=== PATIENT | female | born 1990 | race Two or more races ===

== ENCOUNTER 2017-02-22 11:56 | Outpatient (CLI) | payer MEDICAID ==
[2017-02-22 12:42] LABS: ABSOLUTE EOSINOPHILS # (AUTO) 0.1 10^3/uL (0.0-0.6); ABSOLUTE LYMPHOCYTES (AUTO) 1.8 10^3/uL (0.5-4.7); ABSOLUTE MONOCYTES (AUTO) 0.8 10^3/uL (0.1-1.4); ABSOLUTE NEUT (AUTO) 4.6 10^3/uL (1.7-8.2); BASOPHILS % (AUTO) 0.4 % (0-2); EOSINOPHILS % (AUTO) 1.8 % (0-6); HEMATOCRIT 33.6 % (36.0-47.0); HEMOGLOBIN 11.5 g/dL (12.0-15.5); HGB HCT DIFFERENCE 0.9; LYMPHOCYTES % (AUTO) 24.5 % (13-45); MEAN CORPUSCULAR HEMOGLOBIN 27.1 pg (27.0-33.4); MEAN CORPUSCULAR HGB CONC 34.1 g/dL (32.0-36.0); MEAN CORPUSCULAR VOLUME 80 fl (80-97); MONOCYTES % (AUTO) 10.5 % (3-13); RED BLOOD COUNT 4.22 10^6/uL (3.72-5.28); SEGMENTED NEUTROPHILS % (AUTO) 62.8 % (42-78); WHITE BLOOD COUNT 7.4 10^3/uL (4.0-10.5)
[2017-02-22 12:58] LABS: ALANINE AMINOTRANSFERASE 24 U/L (9-52); ALBUMIN 3.3 g/dL (3.5-5.0); ALKALINE PHOSPHATASE 106 U/L (38-126); ANION GAP 11 (5-19); ASPARTATE AMINO TRANSFERASE 24 U/L (14-36); BILIRUBIN,DIRECT 0.2 mg/dL (0.0-0.4); BILIRUBIN,TOTAL 0.3 mg/dL (0.2-1.3); BLOOD UREA NITROGEN 5 mg/dL (7-20); CALCIUM 9.1 mg/dL (8.4-10.2); CARBON DIOXIDE 19 mmol/L (22-30); CHLORIDE 108 mmol/L (98-107); CREATININE RESULT 0.56 mg/dL (0.52-1.25); GLUCOSE 105 mg/dL (75-110); LDH 357 U/L (313-618); TOTAL PROTEIN 6.5 g/dL (6.3-8.2); URIC ACID 5.1 mg/dL (2.5-6.2)
[2017-02-22 13:36] LABS: APPEARANCE,URINE CLEAR; BILIRUBIN,URINE NEGATIVE (NEGATIVE); GLUCOSE, URINE 50 mg/dL (NEGATIVE); KETONES,URINE NEGATIVE (NEGATIVE); LEUKOCYTE ESTERASE,URINE NEGATIVE (NEGATIVE); NITRITE,URINE NEGATIVE (NEGATIVE); PROTEIN,URINE NEGATIVE (NEGATIVE); URINE SPECIFIC GRAVITY 1.005; UROBILINOGEN,URINE NEGATIVE mg/dL (<2.0)
[2017-02-22 13:40] LABS: BACTERIA,URINE TRACE /HPF
[2017-02-22 13:44] LABS: URINE CREATININE 69.1 mg/dL (16-327); URINE PROTEIN 14.8 mg/dL (<12)
[2017-02-22 13:54] LABS: URINE BARBITURATES SCREEN NEGATIVE; URINE METHADONE SCREEN NEGATIVE; URINE OPIATES LOW NEGATIVE; URINE PHENCYCLIDINE SCREEN NEGATIVE
== END 2017-02-22 14:51 | disposition home or self-care (01) ==
LOC: LC 11:56
PROVIDERS: ATTEND Obstetrics & Gynecology
PROC: 4A1HXCZ Monitoring of Products of Conception, Cardiac Rate, External Approach (ICD-10-PCS; principal; 2017-02-22)
DX: O10.913 Unspecified pre-existing hypertension complicating pregnancy, third trimester (principal); Z3A.34 34 weeks gestation of pregnancy
CPT/HCPCS: 36415; 59025; 80053; 80307; 81001; 82570; 83615; 84156; 84550; 85025

== ENCOUNTER 2017-03-23 18:25 | Emergency (ER) | payer MEDICAID ==
--- NOTE | 2017-03-23 18:43 | ER Document Report ---
HPI - HPI Onset: Yesterday Onset/Duration: Sudden Pain Level: 5 Context: 26-year-old 39 week female arrived via EMS started to stumble and fall yesterday after her SECURITIES UNDERWRITER appointment setting up a induction on Monday, she started to do the [place] splits and used her hands to push herself backwards so she fell on her buttocks. It is difficult to walk because she has anterior pubic, and left pelvis pain with left upper thigh and groin pain. She feels like she pulled a muscle. She states that her Brandyn Wisdom are not any worse than usual she is feeling the baby move. heart tones are 145 at this time. She is having no vaginal bleeding or leaking of fluid. A blood pressure and pivot was 150/98 I will be rechecking a manual blood pressure and consulting with Dr. Adkins SECURITIES UNDERWRITER skilled nursing facilities professional. I did speak with Dr. Morocho who said the AP pelvis x-ray would be fine to get at this time. Pt wants to make sure the pelvis/pubic bone is not broken, agrees to an xray. Associated Symptoms: None Exacerbated by: Walking Relieved by: Denies Similar symptoms previously: No Recently seen / treated by doctor: No - ROS ROS below otherwise negative: Yes Systems Reviewed and Negative: Yes All other systems reviewed and negative - REPRODUCTIVE LMP: 39 wks pg Past Medical History - General Information source: Patient - Social History Smoking Status: Never Smoker Frequency of alcohol use: None Drug Abuse: None Lives with: Spouse/Significant other Family History: Reviewed & Not Pertinent - Past Medical History Cardiac Medical History: Reports: Hx Hypertension Surgical Hx: Negative Vertical Provider Document - CONSTITUTIONAL Agree With Documented VS: Yes Exam Limitations: No Limitations - INFECTION CONTROL TRAVEL OUTSIDE OF THE [place] IN LAST 30 DAYS: No - HEENT HEENT: Normocephalic - NECK Neck: Supple - RESPIRATORY O2 Sat by Pulse Oximetry: 98 - GI/ABDOMEN Notes: gravid uterus, FHT 145. - REPRODUCTIVE Notes: tender left upper anterior thigh muscle into pelvis tendon. pt states her symphysis pubis hurts. - MUSCULOSKELETAL/EXTREMETIES Musculoskeletal/Extremeties: Tender - see above, also sacrum tender - NEURO Level of Consciousness: Awake, Alert, Appropriate - DERM Integumentary: Warm, Dry Course - Re-evaluation Re-evalutation: 03/23/17 19:33 pelvis xray is negative. consulting with dr. adkins, the obgyn skilled nursing facilities professional due to bp 160/80 03/23/17 19:[address] adkins, send pt to labor and delivery now. - Vital Signs Vital signs: Temp Pulse Resp BP Pulse Ox 98.5 F 92 14 150/98 H 98 03/23/17 18:30 03/23/17 18:30 03/23/17 18:30 03/23/17 18:30 03/23/17 18:30 Discharge - Discharge Clinical Impression: left upper thigh strain, groin strain, 39 weeks gestation of Hypertension Qualifiers: Hypertension type: unspecified Qualified Code(s): I10 - Essential (primary) hypertension Condition: Stable Disposition: LABOR CHECK Additional Instructions: reregistered as labor check, send pt to labor and delivery via stretcher. Referrals: DALLAS MCKINNON MD [Primary Care Provider] - Follow up as needed
[2017-03-23] MEDS ORDERED: ACETAMINOPHEN 325 MG TABLET PO ONE (18:49)
[2017-03-23 18:57] VITALS: BP 160/80
--- NOTE | 2017-03-23 19:27 | RADIOLOGY REPORT (SQ) ---
EXAM DESCRIPTION: PELVIS AP COMPLETED DATE/TIME: 03/23/2017 7:14 pm REASON FOR STUDY: fell, pain COMPARISON: None. NUMBER OF VIEWS: One view TECHNIQUE: AP Pelvis LIMITATIONS: None. FINDINGS: MINERALIZATION: Normal. HIPS: No acute fracture or dislocation. No worrisome bone lesions. PELVIS AND SACRUM: No acute fracture or dislocation. No worrisome bone lesions. PUBIS AND ISCHIUM: No acute fracture. LOWER LUMBAR SPINE: No significant findings as visualized. SOFT TISSUES: No findings. OTHER: No other significant finding. IMPRESSION: NEGATIVE STUDY OF THE PELVIS. TECHNICAL DOCUMENTATION: JOB ID: [id number] [employer]- All Rights Reserved
== END 2017-03-23 19:40 | disposition admitted as inpatient to this hospital (09) ==
LOC: ER 18:25
DX: O99.89 Other specified diseases and conditions complicating pregnancy, childbirth and the puerperium (principal); M79.652 Pain in left thigh; R10.2 Pelvic and perineal pain; W01.0XXA Fall on same level from slipping, tripping and stumbling without subsequent striking against object, initial encounter; Y92.009 Unspecified place in unspecified non-institutional (private) residence as the place of occurrence of the external cause; O10.013 Pre-existing essential hypertension complicating pregnancy, third trimester; Z3A.39 39 weeks gestation of pregnancy
CPT/HCPCS: 99284; 72170; J3490

== ENCOUNTER 2017-03-23 19:42 | Outpatient (CLI) | payer MEDICAID ==
[2017-03-23 20:28] LABS: APPEARANCE,URINE CLEAR; BILIRUBIN,URINE NEGATIVE (NEGATIVE); COLOR,URINE YELLOW; GLUCOSE, URINE NEGATIVE (NEGATIVE); KETONES,URINE NEGATIVE (NEGATIVE); LEUKOCYTE ESTERASE,URINE NEGATIVE (NEGATIVE); NITRITE,URINE NEGATIVE (NEGATIVE); PROTEIN,URINE NEGATIVE (NEGATIVE); URINE SPECIFIC GRAVITY 1.008; UROBILINOGEN,URINE NEGATIVE mg/dL (<2.0)
[2017-03-23 20:44] LABS: URINE AMPHETAMINES SCREEN NEGATIVE; URINE BARBITURATES SCREEN NEGATIVE; URINE BENZODIAZEPINES SCREEN NEGATIVE; URINE COCAINE SCREEN NEGATIVE; URINE MARIJUANA (THC) SCREEN NEGATIVE; URINE METHADONE SCREEN NEGATIVE; URINE PHENCYCLIDINE SCREEN NEGATIVE
[2017-03-23 20:59] LABS: ABSOLUTE BASOPHILS # (AUTO) 0.1 10^3/uL (0.0-0.2); ABSOLUTE EOSINOPHILS # (AUTO) 0.2 10^3/uL (0.0-0.6); ABSOLUTE MONOCYTES (AUTO) 0.7 10^3/uL (0.1-1.4); ABSOLUTE NEUT (AUTO) 3.4 10^3/uL (1.7-8.2); BASOPHILS % (AUTO) 1.7 % (0-2); EOSINOPHILS % (AUTO) 3.4 % (0-6); HEMATOCRIT 33.6 % (36.0-47.0); HEMOGLOBIN 11.3 g/dL (12.0-15.5); LYMPHOCYTES % (AUTO) 30.6 % (13-45); MEAN CORPUSCULAR HGB CONC 33.5 g/dL (32.0-36.0); MEAN CORPUSCULAR VOLUME 78 fl (80-97); MONOCYTES % (AUTO) 11.6 % (3-13); PLATELET COUNT 213 10^3/uL (150-450); RED BLOOD COUNT 4.33 10^6/uL (3.72-5.28); RED CELL DISTRIBUTION WIDTH 14.6 % (11.5-14.0); SEGMENTED NEUTROPHILS % (AUTO) 52.7 % (42-78); TOTAL CELLS COUNTED % (AUTO) 100 %; WHITE BLOOD COUNT 6.4 10^3/uL (4.0-10.5)
[2017-03-23 21:09] LABS: UR PRO/CREAT RATIO RESULT 0.1 mg/mg (0.0-0.2)
[2017-03-23 21:23] LABS: ALANINE AMINOTRANSFERASE 25 U/L (9-52); ALKALINE PHOSPHATASE 165 U/L (38-126); ANION GAP 8 (5-19); ASPARTATE AMINO TRANSFERASE 26 U/L (14-36); BILIRUBIN,DIRECT 0.2 mg/dL (0.0-0.4); BILIRUBIN,TOTAL 0.4 mg/dL (0.2-1.3); BLOOD UREA NITROGEN 4 mg/dL (7-20); CALCIUM 9.9 mg/dL (8.4-10.2); CARBON DIOXIDE 23 mmol/L (22-30); CHLORIDE 106 mmol/L (98-107); GLUCOSE 80 mg/dL (75-110); LDH 403 U/L (313-618); POTASSIUM 4.4 mmol/L (3.6-5.0); SODIUM 136.9 mmol/L (137-145); TOTAL PROTEIN 6.1 g/dL (6.3-8.2); URIC ACID 4.5 mg/dL (2.5-6.2)
--- NOTE | 2017-03-27 05:20 | Non Stress Test Report ---
Non Stress Test Datetime Report Generated by CPN: 03/27/2017 05:19 DEMOGRAPHIC EGA NST: 38.4 EGA NST: 34.3 INDICATION Indication for Study: Ordered by Provider Indication for Study: Chronic Hypertension MONITORING Monitor Explained: Monitor Explained; Test Explained; Patient Verbalized Understanding Monitor Explained: Monitor Explained; Test Explained; Patient Verbalized Understanding Time on Monitor: 03/23/2017 20:15 Time on Monitor: 02/22/2017 13:51 Time off Monitor: 03/23/2017 21:30 Time off Monitor: 02/22/2017 14:24 NST Duration: 75 NST Duration: 33 NST INTERVENTIONS NST Interventions: PO Hydration NST Interventions: PO Hydration Physician Notified NST: Dr. Tsang Physician Notified NST: K Evans CNUmu BABY A: [id number] BABY A Movement : Present Movement : Present Contraction Frequency : occasional Contraction Frequency : x0 FHR Baseline : 140 FHR Baseline : 140 Accelerations : 15X15 Accelerations : 15X15 Decelerations : None Decelerations : None Variability : Moderate 6-25bpm Variability : Moderate 6-25bpm NST Review: Meets Criteria for Reactive NST NST Review and Verified By : Dieudonne Lobo RN NST Results: Reactive NST Results: Reactive NST REPORT Report Trigger: Send Report
== END 2017-03-23 22:04 | disposition home or self-care (01) ==
LOC: LC 19:42
PROVIDERS: ATTEND Obstetrics & Gynecology
PROC: 4A1HXCZ Monitoring of Products of Conception, Cardiac Rate, External Approach (ICD-10-PCS; principal; 2017-03-23)
DX: O47.1 False labor at or after 37 completed weeks of gestation (principal); Z3A.39 39 weeks gestation of pregnancy
CPT/HCPCS: 36415; 59025; 80053; 80307; 81005; 82570; 83615; 84156; 84550; 85025

== ENCOUNTER 2017-03-27 07:04 | Inpatient (IN) | payer MEDICAID ==
[2017-03-27] MEDS ORDERED: RINGERS SOLUTION,LACTATED 1,000 ML IV PRN (07:45)
[2017-03-27] MEDS ORDERED: OXYTOCIN/NORMAL SALINE 20 UNIT/1,000 ML RTUINJ IV PRN ×2 (07:45→20:15)
[2017-03-27] MEDS ORDERED: RINGERS SOLUTION,LACTATED 300 ML IV ONE (07:45)
[2017-03-27] MEDS ORDERED: PENICILLIN G POTASSIUM 5,000,000 UNIT in DEXTROSE 5%-WATER 100 ML IV ONE (07:50)
[2017-03-27] MEDS ORDERED: PENICILLIN G-K 5 MILLION UNIT VIAL ONE ×3 (08:06→18:19)
[2017-03-27 08:10] LABS: APPEARANCE,URINE SLIGHTLY-CLOUDY; BILIRUBIN,URINE NEGATIVE (NEGATIVE); COLOR,URINE YELLOW; GLUCOSE, URINE NEGATIVE (NEGATIVE); KETONES,URINE 20 mg/dL (NEGATIVE); LEUKOCYTE ESTERASE,URINE NEGATIVE (NEGATIVE); NITRITE,URINE NEGATIVE (NEGATIVE); PROTEIN,URINE NEGATIVE (NEGATIVE); UROBILINOGEN,URINE NEGATIVE mg/dL (<2.0)
[2017-03-27] MEDS ORDERED: LIDOCAINE 1% INJ-PF (10 MG/ML) 30 ML SDV ONE (08:23)
[2017-03-27] MEDS ORDERED: MISOPROSTOL 0.2 MG TABLET ONE (08:23)
[2017-03-27] MEDS ORDERED: OXYTOCIN/NORMAL SALINE 20 UNIT/1,000 ML RTUINJ ONE ×2 (08:23→20:16)
[2017-03-27 08:25] LABS: URINE AMPHETAMINES SCREEN NEGATIVE; URINE BARBITURATES SCREEN NEGATIVE; URINE BENZODIAZEPINES SCREEN NEGATIVE; URINE COCAINE SCREEN NEGATIVE; URINE MARIJUANA (THC) SCREEN NEGATIVE; URINE METHADONE SCREEN NEGATIVE; URINE PHENCYCLIDINE SCREEN NEGATIVE
[2017-03-27 09:07] LABS: ABSOLUTE EOSINOPHILS # (AUTO) 0.2 10^3/uL (0.0-0.6); ABSOLUTE MONOCYTES (AUTO) 0.6 10^3/uL (0.1-1.4); ABSOLUTE NEUT (AUTO) 3.6 10^3/uL (1.7-8.2); BASOPHILS % (AUTO) 0.4 % (0-2); EOSINOPHILS % (AUTO) 2.8 % (0-6); HEMATOCRIT 34.5 % (36.0-47.0); HEMOGLOBIN 11.2 g/dL (12.0-15.5); LYMPHOCYTES % (AUTO) 30.6 % (13-45); MEAN CORPUSCULAR HEMOGLOBIN 25.6 pg (27.0-33.4); MEAN CORPUSCULAR HGB CONC 32.5 g/dL (32.0-36.0); MEAN CORPUSCULAR VOLUME 79 fl (80-97); MONOCYTES % (AUTO) 9.2 % (3-13); PLATELET COUNT 229 10^3/uL (150-450); RED BLOOD COUNT 4.39 10^6/uL (3.72-5.28); RED CELL DISTRIBUTION WIDTH 14.8 % (11.5-14.0); TOTAL CELLS COUNTED % (AUTO) 100 %; WHITE BLOOD COUNT 6.4 10^3/uL (4.0-10.5)
--- NOTE | 2017-03-27 10:05 | L&D Progress Notes ---
PROGRESS NOTES Datetime Report Generated by CPN: 03/27/2017 10:05 PROGRESS NOTE Procedures: Sterile Vag Exam Plan: Continue Present Management Informed Consent Obtained: Vaginal Delivery; Induction of Labor; Dilatation and Curretage; Risks, Benefits and Alternatives Discussed Comment: 26 yo history of CHTN- IOL LGSIL- colpo pp obesity chronic hypertension sickle cell trait carrier-fob unknown status cervical exam soft 350/-1 gbs prophylaxis FHTs 130s average variability plan to rupture at 12 noon poc reviewed with pt anticipate VAGINAL EXAM Dilatation: 3 Effacement: 50 Station: -1 FETUS A Monitoring: External US Variability: Moderate 6-25bpm Accelerations: 15X15 Decelerations: None FHR Category: Category I : 39.1 SIGNATURE SIGNATURE: [id number];[id number] SIGNATURE: [id number] Assignment: Sammy Quevedo MD Signature: with User ID: [email or web address] : with User ID: [email or web address]
[2017-03-27] MEDS: PENICILLIN G POTASSIUM 2,500,000 UNIT in DEXTROSE 5%-WATER 50 ML IV SCH ×2 (13:04→18:25)
[2017-03-27] MEDS ORDERED: BUPIVACAINE HCL 0.25 % INJ/PF (2.5 MG/1 ML) 30 ML VIAL ONE ×2 (14:13→16:49)
[2017-03-27] MEDS ORDERED: FENTANYL/BUPIVACAINE/NS/PF 200 MCG/100 ML RTUINJ EPI ONE (14:13)
[2017-03-27] MEDS ORDERED: EPHEDRINE SULFATE INJ 50 MG/1 ML AMPULE ONE (14:14)
[2017-03-27] MEDS ORDERED: LIDOCAINE 2% INJ-PF (20 MG/ML) 10 ML AMPUL ONE (16:17)
[2017-03-27] MEDS ORDERED: LOPERAMIDE HCL 2 MG CAPSULE ONE (19:55)
[2017-03-27] MEDS ORDERED: CARBOPROST TROMETHAMINE INJ 250 MCG/1 ML AMPULE ONE (19:55)
[2017-03-27] MEDS ORDERED: LOPERAMIDE HCL 2 MG CAPSULE PO ONE (19:59)
[2017-03-27] MEDS ORDERED: NA PHOS,M-B/NA PHOS,DI-BA (ADULT) 133 ML ENEMA PR PRN ×2 (20:15→22:18)
[2017-03-27] MEDS ORDERED: MAGNESIUM HYDROXIDE SUSP 30 ML UDCUP PO PRN ×2 (20:15→22:18)
[2017-03-27] MEDS ORDERED: MEASLES,MUMPS&RUBELLA VACC/PF 0.5 ML VIAL SUBCUT PRN ×2 (20:15→22:18)
[2017-03-27] MEDS ORDERED: PROMETHAZINE HCL INJ 25 MG/1 ML VIAL IV PRN ×2 (20:15→22:18)
[2017-03-27] MEDS ORDERED: DIPHENHYDRAMINE HCL 25 MG CAPSULE PO PRN ×2 (20:15→22:18)
[2017-03-27] MEDS ORDERED: ZOLPIDEM TARTRATE 5 MG TABLET PO PRN ×2 (20:15→22:18)
[2017-03-27] MEDS ORDERED: PROMETHAZINE HCL 25 MG TABLET PO PRN ×2 (20:15→22:18)
[2017-03-27] MEDS ORDERED: GLYCERIN/WITCH HAZEL LEAF 1 EACH MED..PAD TP PRN ×2 (20:15→22:18)
[2017-03-27] MEDS ORDERED: ACETAMINOPHEN 650 MG SUPP.RECT PR PRN ×2 (20:15→22:18)
[2017-03-27] MEDS ORDERED: BENZOCAINE/MENTHOL AEROSOL SPRAY 56 ML TOP PRN ×2 (20:15→22:18)
[2017-03-27] MEDS ORDERED: DIPH/PERTUSS(ACELL)/TETANUS VAC/PF 0.5 ML SYR (>=10YO) IM PRN ×2 (20:15→22:18)
[2017-03-27] MEDS ORDERED: DIBUCAINE 1% OINTMENT 28 GM TP PRN ×2 (20:15→22:18)
[2017-03-27] MEDS ORDERED: PSEUDOEPHEDRINE HCL 30 MG TABLET PO PRN ×2 (20:15→22:18)
[2017-03-27] MEDS ORDERED: PROMETHAZINE HCL 25 MG SUPP.RECT PR PRN ×2 (20:15→22:18)
[2017-03-27] MEDS ORDERED: MISOPROSTOL 0.2 MG TABLET PR ONE (20:20)
--- NOTE | 2017-03-27 20:53 | Delivery Summary ---
Del Sum A-C Datetime Report Generated by CPN: 03/27/2017 20:53 DELIVERY PERSONNEL DELIVERY PERSONNEL: [id number] Delivery Doctor:: Rosa M Cisneros CNM Labor and Delivery Nurse:: Soni Houston RNbingo clerk Nurse:: Jaylin Yanez RN E Marketing Specialist:: Carrie Gramajo RN Certified Legal Investigator/SEDIMENT REMEDIATION CONSULTANT: Dyan Davis CNA Additional Personnel: : Lea Shea RN MATERNAL INFORMATION Delivery Anesthesia: Epidural Medications After Delivery: Pitocin Bolus-Please Comment; Pitocin Drip 20 Units/1000ml NSS; Other-Please Comment Meds After Delivery Comment: Cytotec 1000mcg SD, 125mcg Hemabate Estimated Blood Loss (ml): 500 Maternal Complications: Hemorrhage Provider Comments: pt with uncontrolled urge to push climbing bed listening to commands delivery of viable male with ritgens maneuver ROP bulb suctioned on perineum to abdomen tactile stimulation elicits spont cry cord clamped cut by mother of baby placenta intact 3VC cord blood obtained placenta intact copious blood uterus explored boggy uterus clots expelled fundal massage continue pitocin EBL 500 cc cytotec 1000 mg per rectum with continued boggy uterus hemabate 125 mcg IM x 1 hemostasis achieved superficial perineal tear not repaired LABOR SUMMARY EDC: 04/02/2017 00:00 No. Babies in Womb: 1 Attempted: No Labor Anesthesia: Epidural LABOR INFORMATION Reason for Induction: Chronic Hypertension Onset of Labor: 03/27/2017 16:57 Complete Dilatation: 03/27/2017 19:13 Oxytocin: Induction Group B Beta Strep: positive Antibiotics # of Doses: 3 Antibiotics Time of Last Dose: 1830 Name of Antibiotic Given: penicillin Steroids Given: None Reason Steroids Not Administered: Not Applicable MEMBRANES Membranes Rupture Method: Artificial Rupture of Membranes: 03/27/2017 13:00 Length of Rupture (hr): 6.72 Amniotic Fluid Color: Clear Amniotic Fluid Amount: Small Amniotic Fluid Odor: None STAGES OF LABOR Stage 1 hr: 2 Stage 1 min: 16 Stage 2 hr: 0 Stage 2 min: 30 Stage 3 hr: 0 Stage 3 min: 3 Total Time in Labor hr: 2 Total Time in Labor min: 49 VAGINAL DELIVERY Episiotomy: None Laceration Repair Note: superficial perineal tear not repaired CSECTION DELIVERY Primary Indication: N/A Secondary Indication: N/A CSection Incidence: N/A Labor: N/A Elective: N/A CSection Incision: N/A BABY A INFORMATION Delivery Date/Time: 03/27/2017 19:43 Method of Delivery: Vaginal Born in Route : No : N/A Forceps: N/A Vacuum Extraction: N/A Shoulder Dystocia : No PRESENTATION/POSITION BABY A Presentation: Cephalic Cephalic Presentation: Vertex Vertex Position: Left Occipital Anterior Breech Presentation: N/A PLACENTA INFORMATION BABY A Placenta Delivery Time : 03/27/2017 19:46 Placenta Method of Delivery: Spontaneous Placenta Status: Delivered SCORES BABY A Heart Rate 1 min: >100 bpm Resp Effort 1 min: Good Cry Reflex Irritability 1 min: Cough or Sneeze or Pulls Away Muscle Tone 1 min: Active Motion Color 1 min: Blue/Pale Resuscitation Effort 1 min: Tactile Stimulation SCORE 1 MIN: 8 Heart Rate 5 min: >100 bpm Resp Effort 5 min: Good Cry Reflex Irritability 5 min: Cough or Sneeze or Pulls Away Muscle Tone 5 min: Active Motion Color 5 min: Body [place], Extremities Blue Resuscitation Effort 5 min: Tactile Stimulation SCORE 5 MIN: 9 INFORMATION BABY A Gestational Age at Delivery: 39.1 Gestational Status: Full Term- 39- 40.6 Weeks Outcome : Liveborn Condition : Stable Sex: Male IDENTIFICATION BABY A Verification Date/Time: 03/27/2017 19:52 ID Band Number: [id number] Mother's Name Verified: Yes RN Verifying Infant: RSkye George RN Additional Verifying Personnel: D. Anali WEIGHT/LENGTH BABY A Birthweight (gm): 4460 Weight (lb): 9 Weight (oz): 13 Length (in): 20.00 Length (cm): 50.80 CORD INFORMATION BABY A No. Cord Vessels: 3 Nuchal Cord : N/A Cord Blood Taken: Yes-For Storage ([facility] [place]) Infant Suction: Mouth; Nose BABY B INFORMATION : N/A SIGNATURES Assignment: Sammy Quevedo MD Signature: with User ID: Aditi : with User ID: [email or web address]
[2017-03-27] MEDS ORDERED: CARBOPROST TROMETHAMINE INJ 250 MCG/1 ML AMPULE IM SCH (21:00)
[2017-03-27] MEDS ORDERED: HYDROMORPHONE HCL INJ/PF 2 MG/ML AMPULE IV ONE (21:01)
[2017-03-27] MEDS ORDERED: HYDROMORPHONE HCL INJ/PF 2 MG/ML AMPULE ONE (21:03)
[2017-03-27] MEDS ORDERED: FAMOTIDINE 20 MG TABLET PO SCH (22:00)
[2017-03-27] MEDS ORDERED: IBUPROFEN 800 MG TABLET PO SCH (22:00)
--- NOTE | 2017-03-27 22:08 | Admission Physical ---
Datetime Report Generated by CPN: 03/27/2017 22:08 CURRENT ADMISSION Chief Complaint: Scheduled Induction of Labor Indication for Induction: Chronic Hypertension Indication for Induction: Term, Intrauterine Admit Plan: Admit to Unit; Initiate Labor Induction Protocol ALLERGIES Medication Allergies: iodine Medication Allergies: iodine (03/27/2017) Medication Allergies: iodine (03/23/2017) Medication Allergies: iodine (02/22/2017) Medication Allergies: iodine (01/20/2017) Latex: No Latex Allergies Food Allergies: none Environmental Allergies: none OBSTETRICAL HISTORY EDC: 04/02/2017 00:00 : 2 Para: 1 Term: 1 : 0 SAB: 0 IAB: 0 Ectopic: 0 Livin Cesareans: 0 VBACs: 0 Multiple Births: 0 Gestational Diabetes: No Rh Sensitization: No Incompetent Cervix: No SKYLAR: No Infertility: No ART Treatment: No Uterine Anomaly: No IUGR: No Hx Previous C/S: No Macrosomia: No Hx Loss/Stillborn: No PIH: Yes Hx : No Placenta Previa/Abruption: No Depression/PP Depression: No PTL/PROM: No Post Hemorrhage: No Current Procedures: Ultrasound; NST Obstetrical History Comments: g1- full term NVD chronic hypertsion-asthma no other problems g2-chronic hypertension SEE RECORDS Alcohol: No Marijuana : No Cocaine: No Other Illicit Drugs: No Cigarettes: Never Smoker. [id number] MEDICAL HISTORY Diabetes: No Blood Transfusion: No Pulmonary Disease (Asthma, TB): Yes Breast Disease: No Hypertension: Yes Certified Flex Endoscope Reprocessor Surgery: No Heart Disease: No Hosp/Surgery: Yes Autoimmune Disorder: No Anesthetic Complications: No Kidney Disease: No Abnormal Pap Smear: Yes Neuro/Epilepsy: No Psychiatric Disorders: No Other Medical Diseases: No Hepatitis/Liver Disease: No Significant Family History: No Varicosities/Phlebitis: No Trauma/Violence : No Thyroid Dysfunction: No Medical History Comments: abnormal pap smears, will have test after baby born, developed hypertension at 16. self d/c'd Lisinopril INFECTIOUS HISTORY Gonorrhea: No Genital Herpes: No Chlamydia: No Tuberculosis: No Syphilis: No Hepatitis: No HIV/AIDS Exposure: No Rash or Viral Illness: No HPV: No PHYSICAL EXAM General: Normal HEENT: Normal Neurologic: Normal Thyroid: Normal Heart: Normal Lungs: Normal Breast: Normal Back: Normal Abdomen: Normal Genitourinary Exam: Normal Extremities: Normal DTRs: Normal Pelvic Type: Adequate VAGINAL EXAM Dilatation: 3 Effacement: 50 Station: -1 FETUS A EGA: 39.1 Monitoring: External US FHR- Baseline: 145 Variability: Moderate 6-25bpm Accelerations: 15X15 FHR Category: Category I Presentation: Vertex Admit Comment: see progress note written as admission note 26 yo admitted for iol secondary to chronic hypertension EDC 04/02/17 EDC 39.1 Morbid obesity Sickle cell trait carrier- FOB unknown status GBS positive Asthma Chronic Hypertension history of LGSIL- colpo pp plan on rupturing after 2nd dose of penicillin anticipate PLANS FOR LABOR AND DELIVERY Labor and Delivery: None Pain Management: Epidural Feeding Preference: Breast Benefit of Breast Feed Discussed: Yes Circumcision: No INFORMED CONSENT Informed Consent Obtained: Vaginal Delivery; Induction of Labor; Dilatation and Curretage; Risks, Benefits and Alternatives Discussed Assignment: Sammy Quevedo MD Signature: with User ID: [email or web address] : with User ID: [email or web address]
[2017-03-27] MEDS ORDERED: ACETAMINOPHEN WITH CODEINE #3 TABLET PO PRN ×2 (22:18)
[2017-03-27] MEDS ORDERED: INFLUENZA ADLT QUAD (36MOS+) 2017-18 VAC 0.5 ML SYR IM PRN (22:57)
[2017-03-27] MEDS ORDERED: LISINOPRIL 10 MG TABLET PO ONE (23:15)
[2017-03-28] MEDS ORDERED: CEFTRIAXONE INJ 1000 MG VIAL IV SCH (04:15)
[2017-03-28] MEDS ORDERED: CLINDAMYCIN 900 MG/D5W RTU 50 ML IV ONE (04:15)
[2017-03-28] MEDS ORDERED: CEFTRIAXONE 1 GM/D5W RTU 1 GM/50 ML RTUPB IV ONE ×2 (05:00→05:03)
[2017-03-28] MEDS: IBUPROFEN 800 MG TABLET PO SCH ×3 (05:14→22:30)
[2017-03-28 07:26] LABS: HEMATOCRIT 31.8 % (36.0-47.0); HEMOGLOBIN 10.3 g/dL (12.0-15.5); MEAN CORPUSCULAR HEMOGLOBIN 25.3 pg (27.0-33.4); MEAN CORPUSCULAR HGB CONC 32.5 g/dL (32.0-36.0); MEAN CORPUSCULAR VOLUME 78 fl (80-97); PLATELET COUNT 205 10^3/uL (150-450); RED BLOOD COUNT 4.09 10^6/uL (3.72-5.28); RED CELL DISTRIBUTION WIDTH 14.7 % (11.5-14.0)
[2017-03-28 07:31] LABS: WHITE BLOOD COUNT 12.9 10^3/uL (4.0-10.5)
[2017-03-28] MEDS: LISINOPRIL 10 MG TABLET PO SCH (09:06)
[2017-03-28] MEDS: CLINDAMYCIN 900 MG/D5W RTU 50 ML IV SCH ×2 (09:06→14:54)
[2017-03-28] MEDS: SENNOSIDES/DOCUSATE 8.6-50 MG 1 EACH TABLET PO SCH (09:07)
[2017-03-28] MEDS: DOCUSATE SODIUM 100 MG CAPSULE PO SCH ×2 (09:08→18:14)
[2017-03-28] MEDS: FAMOTIDINE 20 MG TABLET PO SCH ×2 (09:08→22:30)
[2017-03-28] MEDS: FERROUS SULFATE 325 MG TABLET PO SCH ×2 (09:08→20:33)
[2017-03-28] MEDS: PRENATAL VITAMIN W DHA CAPSULE PO SCH (09:08)
--- NOTE | 2017-03-28 09:08 | PDOC PROGRESS REPORT ---
Subjective-OB Subjective: Post Delivery Day: 26 year old. Denies any needs at this time OOB in room, had fever last night, feeling ok now,breast feeding, eating well, voiding, mod bleeding Physical Exam (OB) Vital Signs: Temp Pulse Resp BP Pulse Ox 98.3 F 83 17 114/59 L 100 03/28/17 07:53 03/28/17 07:53 03/28/17 07:53 03/28/17 07:53 03/28/17 07:53 Intake & Output 03/27/17 03/28/17 03/29/17 06:59 06:59 06:59 Weight 120.3 kg - PIH/Pre-Eclampsia DTR's: 1 + Clonus: Negative Headache: Present Epigastric Pain: No Visual Changes: No - Lochia Lochia Amount: Moderate 25-50 ml Lochia Color: Rubra/Red - Abdomen Description: Tender, Soft Hernia Present: No Fundal Description: Firm, Midline Fundal Height: u/u - u/2 Objective-Diagnostic Laboratory: 03/28/17 06:55 03/27/17 03/27/17 03/28/17 08:48 08:48 06:55 WBC 6.4 12.9 H D RBC 4.39 4.09 Hgb 11.2 L 10.3 L Hct 34.5 L 31.8 L MCV 79 L 78 L MCH 25.6 L 25.3 L MCHC 32.5 32.5 RDW 14.8 H 14.7 H Plt Count 229 205 Seg Neutrophils % 57.0 Lymphocytes % 30.6 Monocytes % 9.2 Eosinophils % 2.8 Basophils % 0.4 Absolute Neutrophils 3.6 Absolute Lymphocytes 2.0 Absolute Monocytes 0.6 Absolute Eosinophils 0.2 Absolute Basophils 0.0 Blood Type A POSITIVE Antibody Screen NEGATIVE Assessment and Plan(PN) - Assessment and Plan (1) Normal vaginal delivery Is this a current diagnosis for this admission?: Yes (2) hemorrhage of vagina Is this a current diagnosis for this admission?: Yes (3) GBS (group B Streptococcus carrier), +RV culture, currently Is this a current diagnosis for this admission?: Yes (4) Hypertension Qualifiers: Hypertension type: unspecified Qualified Code(s): I10 - Essential (primary ) hypertension Is this a current diagnosis for this admission?: Yes (5) 39 weeks gestation of Is this a current diagnosis for this admission?: Yes - Time Spent with Patient Time with patient: Less than 15 minutes Medications reviewed and adjusted accordingly: Yes - Disposition Anticipated Discharge: Home Within: within 48 hours
[2017-03-28] MEDS ORDERED: SENNOSIDES/DOCUSATE 8.6-50 MG 1 EACH TABLET PO SCH (10:00)
[2017-03-28] MEDS ORDERED: PRENATAL VITAMIN W DHA CAPSULE PO SCH (10:00)
[2017-03-28] MEDS ORDERED: DOCUSATE SODIUM 100 MG CAPSULE PO SCH (10:00)
[2017-03-28] MEDS ORDERED: FERROUS SULFATE 325 MG TABLET PO SCH (10:00)
[2017-03-28] MEDS ORDERED: CEFTRIAXONE 1 GM/D5W RTU 1 GM/50 ML RTUPB IV SCH (18:00)
[2017-03-28] MEDS ORDERED: CEFTRIAXONE SODIUM 1,000 MG in DEXTROSE 5%-WATER 100 ML IV SCH (18:00)
[2017-03-28] MEDS: CEPHALEXIN 250 MG CAPSULE PO SCH ×2 (18:14→23:29)
[2017-03-29] MEDS: IBUPROFEN 800 MG TABLET PO SCH ×3 (05:47→21:11)
[2017-03-29] MEDS: CEPHALEXIN 250 MG CAPSULE PO SCH ×2 (05:48→15:36)
[2017-03-29] MEDS: LISINOPRIL 10 MG TABLET PO SCH (09:41)
[2017-03-29] MEDS: FAMOTIDINE 20 MG TABLET PO SCH ×2 (09:42→21:11)
[2017-03-29] MEDS: DOCUSATE SODIUM 100 MG CAPSULE PO SCH ×2 (09:42→18:05)
[2017-03-29] MEDS: PRENATAL VITAMIN W DHA CAPSULE PO SCH (09:42)
[2017-03-29] MEDS: SENNOSIDES/DOCUSATE 8.6-50 MG 1 EACH TABLET PO SCH (09:42)
[2017-03-29] MEDS: FERROUS SULFATE 325 MG TABLET PO SCH ×2 (09:42→18:05)
--- NOTE | 2017-03-29 13:40 | PDOC PROGRESS REPORT ---
Subjective-OB Subjective: Post Delivery Day:2 26 year old G2 now P2 s/p ppd2. Reports to have been on lisinopril 10yrs ago with the same problems as this and even after trying different doses her blood pressure has never been controlled. Denies JONES/RUQ/visual disturbances or other concerns today. Attempting . Physical Exam (OB) Vital Signs: Temp Pulse Resp BP Pulse Ox 98.1 F 84 14 133/74 H 100 03/29/17 11:41 03/29/17 11:41 03/29/17 11:41 03/29/17 11:41 03/29/17 11:41 Intake & Output 03/28/17 03/29/17 03/30/17 06:59 06:59 06:59 Weight 120.3 kg - General General Appearance: Appears well In distress: None - PIH/Pre-Eclampsia DTR's: 1 + Clonus: Negative Headache: Absent Epigastric Pain: No Visual Changes: No - Episiotomy/Laceration Site Condition: N/A - Lochia Lochia Amount: Small 10-25 ml Lochia Color: Rubra/Red, Serosa/Brown - Abdomen Description: Tender, Soft, Round Hernia Present: No Fundal Description: Firm Fundal Height: u/u - u/2 - Respiratory Respiratory Status: No respiratory distress - Extremities Upper extremity: Normal inspection Lower extremities: Normal inspection - Neurological Cognition: Normal Orientation: AAOx4 - Psychological Associated symptoms: Normal affect, Normal mood Objective-Diagnostic Laboratory: 03/28/17 06:55 Assessment and Plan(PN) - Assessment and Plan (1) Chronic hypertension affecting Is this a current diagnosis for this admission?: Yes Plan: Discussed with Dr. Haider who recommends stopping lisinopril at this time and will start procardia now. Will obtain PIH labs. Continue monitoring for s/s of pre-e. (2) GBS (group B Streptococcus carrier), +RV culture, currently Is this a current diagnosis for this admission?: Yes Plan: delivered (3) Normal vaginal delivery Is this a current diagnosis for this admission?: Yes Plan: routine pp care (4) Acute blood loss anemia Is this a current diagnosis for this admission?: Yes Plan: inc dietary iron and feso4 bid - Time Spent with Patient Time with patient: 15-25 minutes Medications reviewed and adjusted accordingly: Yes - Disposition Anticipated Discharge: Home Within: within 24 hours
[2017-03-29 14:56] LABS: ABSOLUTE EOSINOPHILS # (AUTO) 0.3 10^3/uL (0.0-0.6); ABSOLUTE LYMPHOCYTES (AUTO) 1.8 10^3/uL (0.5-4.7); ABSOLUTE MONOCYTES (AUTO) 0.7 10^3/uL (0.1-1.4); ABSOLUTE NEUT (AUTO) 5.1 10^3/uL (1.7-8.2); BASOPHILS % (AUTO) 0.4 % (0-2); EOSINOPHILS % (AUTO) 3.7 % (0-6); HEMATOCRIT 31.1 % (36.0-47.0); HEMOGLOBIN 10.4 g/dL (12.0-15.5); MEAN CORPUSCULAR HEMOGLOBIN 25.9 pg (27.0-33.4); MEAN CORPUSCULAR HGB CONC 33.4 g/dL (32.0-36.0); MEAN CORPUSCULAR VOLUME 78 fl (80-97); MONOCYTES % (AUTO) 8.9 % (3-13); PLATELET COUNT 236 10^3/uL (150-450); RED BLOOD COUNT 4.02 10^6/uL (3.72-5.28); RED CELL DISTRIBUTION WIDTH 14.7 % (11.5-14.0); TOTAL CELLS COUNTED % (AUTO) 100 %; WHITE BLOOD COUNT 7.9 10^3/uL (4.0-10.5)
[2017-03-29 15:12] LABS: ALANINE AMINOTRANSFERASE 30 U/L (9-52); ALBUMIN 2.7 g/dL (3.5-5.0); ALKALINE PHOSPHATASE 113 U/L (38-126); ANION GAP 7 (5-19); ASPARTATE AMINO TRANSFERASE 32 U/L (14-36); BLOOD UREA NITROGEN 7 mg/dL (7-20); CALCIUM 9.4 mg/dL (8.4-10.2); CARBON DIOXIDE 25 mmol/L (22-30); CHLORIDE 109 mmol/L (98-107); GLUCOSE 80 mg/dL (75-110); POTASSIUM 4.3 mmol/L (3.6-5.0); SODIUM 141.4 mmol/L (137-145); TOTAL PROTEIN 5.6 g/dL (6.3-8.2); URIC ACID 4.5 mg/dL (2.5-6.2)
[2017-03-29 15:44] LABS: BILIRUBIN,TOTAL < 0.1 mg/dL (0.2-1.3)
[2017-03-29] MEDS ORDERED: NIFEDIPINE 30 MG TAB.ER.24 PO SCH (18:00)
[2017-03-30] MEDS: IBUPROFEN 800 MG TABLET PO SCH ×2 (06:11→13:34)
[2017-03-30] MEDS: SENNOSIDES/DOCUSATE 8.6-50 MG 1 EACH TABLET PO SCH (09:42)
[2017-03-30] MEDS: FERROUS SULFATE 325 MG TABLET PO SCH (09:42)
[2017-03-30] MEDS: PRENATAL VITAMIN W DHA CAPSULE PO SCH (09:42)
[2017-03-30] MEDS: DOCUSATE SODIUM 100 MG CAPSULE PO SCH (09:42)
[2017-03-30] MEDS: FAMOTIDINE 20 MG TABLET PO SCH (09:42)
--- NOTE | 2017-03-30 10:05 | PDOC PROGRESS REPORT ---
Subjective-OB Subjective: Post Delivery Day: 26 year old. Denies any needs at this time. Ready for discharge. Physical Exam (OB) Vital Signs: Temp Pulse Resp BP Pulse Ox 98.5 F 86 16 138/84 H 95 03/30/17 08:00 03/30/17 08:00 03/30/17 08:00 03/30/17 08:00 03/30/17 08:00 - PIH/Pre-Eclampsia DTR's: 1 + Clonus: Negative Headache: Absent Epigastric Pain: No Visual Changes: No - Lochia Lochia Amount: Scant < 10 ml Lochia Color: Rubra/Red - Abdomen Description: Soft, Round Hernia Present: No Bowel Sounds: Normoactive Flatus Presence: Present Stool: Yes Fundal Description: Firm, Midline Fundal Height: u/u - u/2 Objective-Diagnostic Laboratory: 03/29/17 14:47 03/29/17 14:47 03/29/17 03/29/17 14:47 14:47 WBC 7.9 RBC 4.02 Hgb 10.4 L Hct 31.1 L MCV 78 L MCH 25.9 L MCHC 33.4 RDW 14.7 H Plt Count 236 Seg Neutrophils % 64.0 Lymphocytes % 23.0 Monocytes % 8.9 Eosinophils % 3.7 Basophils % 0.4 Absolute Neutrophils 5.1 Absolute Lymphocytes 1.8 Absolute Monocytes 0.7 Absolute Eosinophils 0.3 Absolute Basophils 0.0 Sodium 141.4 Potassium 4.3 Chloride 109 H Carbon Dioxide 25 Anion Gap 7 BUN 7 Creatinine 0.60 Est GFR ( Amer) > 60 Est GFR (Non-Af Amer) > 60 Glucose 80 Uric Acid 4.5 Calcium 9.4 Total Bilirubin < 0.1 L AST 32 ALT 30 Alkaline Phosphatase 113 Total Protein 5.6 L Albumin 2.7 L Assessment and Plan(PN) - Time Spent with Patient Medications reviewed and adjusted accordingly: Yes - Disposition Anticipated Discharge: Home
--- NOTE | 2017-03-30 10:11 | PDOC DISCHARGE SUMMARY ---
Final Diagnosis Discharge Date: 03/30/17 - Final Diagnosis (1) Acute blood loss anemia Is this a current diagnosis for this admission?: Yes (2) Chronic hypertension affecting Is this a current diagnosis for this admission?: Yes (3) GBS (group B Streptococcus carrier), +RV culture, currently Is this a current diagnosis for this admission?: Yes (4) Normal vaginal delivery Is this a current diagnosis for this admission?: Yes (5) hemorrhage of vagina Is this a current diagnosis for this admission?: Yes (6) 39 weeks gestation of Is this a current diagnosis for this admission?: Yes (7) Hypertension Is this a current diagnosis for this admission?: Yes Discharge Data - Discharge Medication Home Medications: Pnv No.95/Ferrous Fum/Folic AC [ Formula Tablet] 1 each PO DAILY Gestational Age: 39.1 wks Reason(s) for Admission: Induction of Labor, PIH Procedures: Ultrasound Intrapartum Procedure(s): Spontaneous Vaginal Delivery - Data Baby 1 Male at 1 minute: 8 at 5 minutes: 9 Weight: 4.451 kg Home with Mother: Yes Complications: No - Diagnosis Test Laboratory: Temp Pulse Resp BP Pulse Ox 98.5 F 86 16 138/84 H 95 03/30/17 08:00 03/30/17 08:00 03/30/17 08:00 03/30/17 08:00 03/30/17 08:00 03/27/17 03/27/17 03/28/17 07:22 08:48 06:55 RBC 4.39 4.09 Hgb 11.2 L 10.3 L Hct 34.5 L 31.8 L Urine Opiates Screen NEGATIVE 03/29/17 14:47 RBC 4.02 Hgb 10.4 L Hct 31.1 L Urine Opiates Screen - Discharge information/Instructions Discharge Activity: Activity As Tolerated, Balance Activity w/Rest, No Lifting Over 10 Pounds, Pelvic Rest, Slowly Increase Activity, No tub bath, Walk Frequently Discharge Diet: Regular Disposition: HOME, SELF-CARE Follow up with: [facility] in: 4, Weeks
[2017-03-30] MEDS: LISINOPRIL 10 MG TABLET PO SCH (13:11)
[2017-03-30 13:27] VITALS: BP 155/96
[2017-03-30] MEDS ORDERED: LABETALOL HCL 200 MG TABLET PO SCH (22:00)
[2017-03-31] MEDS ORDERED: HYDROCHLOROTHIAZIDE 50 MG TABLET PO SCH (10:00)
== END 2017-03-30 14:59 | disposition home or self-care (01) | DRG 774 ==
LOC: LR 07:04 → 2S 22:07
PROVIDERS: ADMIT Obstetrics & Gynecology Gynecology; ATTEND Obstetrics & Gynecology Gynecology
PROC: 10E0XZZ Delivery of Products of Conception, External Approach (ICD-10-PCS; principal; 2017-03-27)
PROC: 4A1HXCZ Monitoring of Products of Conception, Cardiac Rate, External Approach (ICD-10-PCS; 2017-03-27)
PROC: 3E033VJ Introduction of Other Hormone into Peripheral Vein, Percutaneous Approach (ICD-10-PCS; 2017-03-27)
DX: O10.92 Unspecified pre-existing hypertension complicating childbirth (principal); O72.1 Other immediate postpartum hemorrhage; D62 Acute posthemorrhagic anemia; O70.0 First degree perineal laceration during delivery; O99.214 Obesity complicating childbirth; E66.01 Morbid (severe) obesity due to excess calories; O99.824 Streptococcus B carrier state complicating childbirth; O99.52 Diseases of the respiratory system complicating childbirth; J45.909 Unspecified asthma, uncomplicated; O99.02 Anemia complicating childbirth; D57.3 Sickle-cell trait; Z37.0 Single live birth; Z68.37 Body mass index [BMI] 37.0-37.9, adult; Z3A.39 39 weeks gestation of pregnancy
CPT/HCPCS: 36415; 80053; 80307; 81005; 84550; 85025; 85027; 86592; 86850; 86900; 86901; 94760; J0696; J1170; J2540; J2590; J3490